=== PATIENT | female | born 1955 | race American Indian/Alaskan Native ===

== ENCOUNTER 2016-05-28 09:56 | Outpatient (CLI) | payer OTHER ==
--- NOTE | 2016-05-28 11:50 | Mammography Report ---
BILATERAL DIGITAL DIAGNOSTIC MAMMOGRAM : 05/28/16 09:56:00 CLINICAL: Six month followup for bilateral asymmetries. COMPARISON:10/12/15 screening FINDINGS: Routine views were performed and demonstrate an less prominent right upper asymmetry and stable left asymmetries. She could not wait for ultrasound. IMPRESSION: Stable left mammographic asymmetries.However, she needs a followup global left breast ultrasound. Benign mammographic asymmetry in the upper right breast. Recommend routine screening of the right breast. BI-RADS CATEGORY: 0--Needs Additional Imaging RECOMMENDATION: Return for a left breast ultrasound. ACR BI-RADS MAMMOGRAPHIC CODES: 0 = Needs additional imaging evaluation; 1 = Negative; 2 = Benign; 3 = Probably benign; 4 = Suspicious; 5 = Malignant; 6 = Known biopsy-proven malignancy COMMENT: 1. Dense breast tissue, i.e., adenosis, fibrocystic changes, etc., may obscure an underlying neoplasm. 2. Approximately 10% of cancers are not detected with mammography. 3. A negative mammography report should not delay biopsy if a clinically suspicious mass is present. COMMENT: Patient follow-up letters are generated via our [employer] application.
== END 2016-05-28 09:57 | disposition home or self-care (01) ==
LOC: SPVWC 09:56
PROVIDERS: ATTEND Family Medicine
DX: N64.89 Other specified disorders of breast (principal)
CPT/HCPCS: 77066; G0204

== ENCOUNTER 2016-06-07 10:28 | Outpatient (CLI) | payer OTHER ==
--- NOTE | 2016-06-07 12:06 | Ultrasound Report ---
LEFT BREAST ULTRASOUND: 06/07/16 10:28:00 CLINICAL: Mammographic asymmetries. COMPARISON: 05/28/16 mammogram. FINDINGS: Ultrasound of the left breast(including all four quadrants and the retroareolar area) was performed. A complex lesion is identified at 5 o'clock 4 cm from the nipple. It is relatively anechoic but irregular with no through transmission. It measures approximately 6 x 5 x 4 mm. The complex cyst at 12 o'clock 4 cm from nipple measures 5 x 3 x 4 mm. A benign cyst at 6 o'clock 4 cm from the nipple measures 5 x 2 x 6 mm. A lymph node in the left axilla has central fat a benign morphology and measures 1.0 x 0.8 x 0.8 cm. IMPRESSION: A mildly suspicious 6 mm complex cyst versus solid mass at 5 o'clock 4 cm from the nipple. Recommend ultrasound guided needle core biopsy to confirm benignity. BI-RADS 4--Suspicious I discussed the findings and the recommendation for ultrasound guided needle core biopsy with the patient at the time of the examination.
== END 2016-06-07 10:29 | disposition home or self-care (01) ==
LOC: SPVWC 10:28
PROVIDERS: ATTEND Family Medicine
DX: N64.89 Other specified disorders of breast (principal)

== ENCOUNTER 2016-07-18 13:08 | Outpatient (CLI) | payer OTHER ==
--- NOTE | 2016-07-18 14:56 | Ultrasound Report ---
VACUUM ASSISTED ULTRASOUND GUIDED NEEDLE CORE BIOPSY WITH CLIP PLACEMENT LEFT BREAST: 07/18/16 13:08:00 CLINICAL: Complex cyst versus solid mass at 5 o'clock 4 cm from the nipple. COMPARISON :06/07/16 FINDINGS: The procedure was explained to the patient and informed consent was obtained. Ultrasound demonstrated an irregular complex lesion at 5 o'clock 4 cm from the nipple. It has angular margins and a greater solid component than on the prior exam. The skin was prepped with Betadine and anesthetized with 1% lidocaine. Vacuum-assisted needle core biopsy was performed through a small dermatotomy using ultrasound guidance, 2% lidocaine with epinephrine for deep anesthesia and a 13-gauge Elite biopsy probe. Imaging demonstrated satisfactory sampling. Multiple cores were obtained and placed in formalin. A hydro-radha clip was fully within the lesion. Hemostasis was achieved with minimal pressure and a sterile dressing was applied. The patient tolerated the procedure well and there were no apparent complications. A two view mammogram demonstrated concordant clip placement. The patient left the department in good condition and was given instructions for wound care and follow up. IMPRESSION: Uncomplicated vacuum-assisted ultrasound core biopsy and clip placement left breast.
--- NOTE | 2016-07-18 14:57 | Mammography Report ---
LEFT DIGITAL DIAGNOSTIC MAMMOGRAM: 07/18/16 13:08:00 CLINICAL: For clip placement immediately status post ultrasound biopsy of a lesion at 5 o'clock 4 cm from the nipple. COMPARISON:05/28/16 FINDINGS: A biopsy clip is now identified in the lower outer quadrant. A clip is identified on lateral and rolled medial CC views. IMPRESSION: Concordant clip placement status post ultrasound biopsy. BI-RADS CATEGORY: 4--Suspicious Pathology pending.
== END 2016-07-18 13:09 | disposition home or self-care (01) ==
LOC: SPVWC 13:08
PROVIDERS: ATTEND Family Medicine
DX: N63 Unspecified lump in breast (principal)
CPT/HCPCS: 19083; 88305; A4648; G0206